=== PATIENT | male | born 2000 | race Two or more races ===

== ENCOUNTER 2025-04-17 09:15 | Outpatient (CLI) | payer OTHER | END 2025-04-17 09:16 | disposition home or self-care (01) | LOC: BICRAD 09:15 | PROVIDERS: ATTEND Orthopaedic Surgery | DX: M54.41 Lumbago with sciatica, right side (principal); M47.817 Spondylosis without myelopathy or radiculopathy, lumbosacral region | CPT/HCPCS: 72120 ==